=== PATIENT | female | born 1945 | race Caucasian/White ===

== ENCOUNTER 2025-01-14 14:56 | Outpatient (CLI) | payer MEDICARE, BC | END 2025-01-14 14:57 | disposition home or self-care (01) | LOC: CSHRAD 14:56 | DX: M54.6 Pain in thoracic spine (principal); R06.02 Shortness of breath; M40.204 Unspecified kyphosis, thoracic region; S22.000D Wedge compression fracture of unspecified thoracic vertebra, subsequent encounter for fracture with routine healing | CPT/HCPCS: 71046 ==